=== PATIENT | male | born 1985 | race Caucasian/White ===

== ENCOUNTER 2024-07-19 15:25 | Emergency (ER) | payer OTHER, SELFPAY ==
[2024-07-19 15:28] VITALS: BP 144/90; PULSE 106; RESP 18; TEMP 38.5; O2SAT 94; BMI 34.3
--- NOTE | 2024-07-19 15:43 | ED_ITS ---
HPI - General Adult General Chief complaint: Fever Stated complaint: fever, chills Time Seen by Provider: 07/19/24 15:40 History of Present Illness HPI narrative: Patient presents to the emergency department complaining of flu like symptoms. Patient states this started Monday after he used a marijuana vape and he attributed those symptoms to that. Patient however has had symptoms persist and developed a fever, diarrhea , and continued vomiting. 38-year-old man presenting to the emergency department with concern of fever and diarrhea. He has also been vomiting. No melena no hematochezia no hematemesis. All these symptoms began about 5 days ago following marijuana vape. He has recently quit smoking and is coughing up the crud he says. Is not specifically short of breath. Is having some abdominal cramping ahead of the diarrhea. Worried now is dehydrated. Arrives here with a fever. No rashes. No particular exposures. Some general achiness and chilled. Related Data Previous Rx's ?Medication ?Instructions ?Recorded doxycycline hyclate 100 mg capsule 100 mg PO BID #14 caps 07/20/24 Allergies Allergy/AdvReac Type Severity Reaction Status Date / Time No Known Drug Allergies Allergy Verified 07/20/24 06:59 Review of Systems Status of ROS: Reports: 6 or more systems reviewed and unremarkable except as noted in History and below [facility] Social History (Updated 07/20/24 @ 07:28 by Sophia Fontanez MD) Smoking Status: Former smoker What tobacco products do you use: cigarettes Smoking quit date/years: <= 15 years ago Non-prescribed substance use: marijuana (any form) Exam Narrative: Exam Narrative: Pleasant. Curled up lying on his left side is if does not feel very good. Oropharynx is sticky. He is missing a few teeth. Generally hyperemic. He is breathing easily. Lungs appear to be clear. Heart is in an elevated rate and regular rhythm. Abdomen is soft. Overweight. He is little uncomfortable to palpation in the epigastrium. No masses appreciated. Extremities are well perfused without edema. She her skin is rather warm without rash. Cranial nerves 2-12 intact. He is conversing easily. Const: Vital Signs, click to edit/add: Vital Signs - 24 hr 07/19/24 15:28 Temperature 101.3 F H Pulse Rate [Right Pulse Oximeter] 106 H Respiratory Rate 18 Blood Pressure [Ri ght Upper Arm] 144/90 H Pulse Oximetry 94 Oxygen Delivery Me thod Room Air Documenting provider has reviewed patient's vital signs: yes Course Vital Signs Vital signs: Initial Vital Signs Temperature 101.3 F H 07/19/24 15:28 Temperature Source Temporal Artery Scan 07/19/24 15:28 Pulse Rate 106 H 07/19/24 15:28 Pulse Rhythm Regular 07/19/24 15:28 Pulse Strength 3+ Normal 07/19/24 15:28 Respiratory Rate 18 07/19/24 15:28 Blood Pressure 144/90 H 07/19/24 15:28 Blood Pressure Mean 108 H 07/19/24 15:28 Blood Pressure Position Sitting 07/19/24 15:28 Pulse Oximetry 94 07/19/24 15:28 Oxygen Delivery Method Room Air 07/19/24 15:28 Vital Signs Temperature 101.3 F H 07/19/24 15:28 Pulse Rate 106 H 07/19/24 15:28 Respiratory Rate 18 07/19/24 15:28 Blood Pressure 144/90 H 07/19/24 15:28 Pulse Oximetry 94 07/19/24 15:28 Oxygen Delivery Method Room Air 07/19/24 15:28 Temperature 97.9 F 07/19/24 18:20 Pulse Rate 93 07/19/24 17:07 Respiratory Rate 16 07/19/24 17:07 Blood Pressure 143/83 H 07/19/24 17:07 Pulse Oximetry 91 07/19/24 17:07 Oxygen Delivery Method Room Air 07/19/24 17:07 Medications Administered Medications: Discontinued Medications Generic Name Dose Route Start Last Admin Trade Name Salty PRN Reason Stop Dose Admin Acetaminophen 1,000 mg 07/19/24 17:10 07/19/24 17:20 Acetaminophen 500 Mg Tablet PO 07/19/24 17:11 1,000 mg ONCE ONE Administration Sodium Chloride 1,000 mls @ 1,000 mls/hr 07/19/24 15:52 07/19/24 17:09 0.9 % Sodium Chloride 1000 Ml IV 07/19/24 16:51 Infused .Q1H ONE Infusion Sodium Chloride 1,000 mls @ 1,000 mls/hr 07/19/24 16:35 07/19/24 18:20 0.9 % Sodium Chloride 1000 Ml IV 07/19/24 17:34 Infused .Q1H ONE Infusion Ibuprofen 800 mg 07/19/24 16:09 07/19/24 16:39 Ibuprofen 400 Mg Tablet PO 07/19/24 16:10 800 mg ONCE ONE Administration Ondansetron HCl 4 mg 07/19/24 15:52 07/19/24 16:23 Ondansetron 2 Mg/Ml Inj IVP 07/19/24 15:53 4 mg ONCE ONE Administration Medical Decision Making MDM Narrative Medical decision making narrative: Appears to have gastrointestinal illness of unclear etiology. Would screen for COVID considering community prevalence. Think would also benefit from hydration. Would check basic labs looking for red flags. Does not have significant pain or persistent discomfort that would prompt further imaging at this time. I did note lower oxygen saturations on arrival. Does have sleep apnea and long history of smoking. Not short of breath at this time. Labs are overall reassuring. Mildly elevated white count. With antiemetic and ibuprofen and IV hydration is overall improved. Heart rate still elevated but no longer tachycardic. See patient discharge plan for further discussion. Lab Data Lab results reviewed: Yes I reviewed the patient's lab results Labs: Lab Results 07/19/24 07/19/24 07/19/24 Range/Units 15:38 16:05 18:16 WBC 13.07 H (4.50-11.00) K/uL RBC 4.91 (4.30-5.90) m/uL Hgb 14.7 (13.5-17.5) gm/dL Hct 42.2 (37.0-53.0) % MCV 86 (80-100) fL MCH 30 (26-34) pg MCHC 35 (32-36) gm/dL RDW Coeff of Flower 13.2 (11.5-15.5) % Plt Count 204 (140-440) K/uL Neut % (Auto) 87.9 H (42.0-72.0) % Lymph % (Auto) 5.7 L (20-44) % Jack % (Auto) 5.9 (0.0-11.0) % Eos % (Auto) 0.0 (0.0-7.0) % Baso % (Auto) 0.3 (0.0-3.0) % Neut # (Auto) 11.50 H (1.7-7.0) K/uL Lymph # (Auto) 0.70 L (0.90-2.90) K/uL [place] # (Auto) 0.80 (0.00-0.90) K/UL Eos # (Auto) 0.00 (0.00-0.50) K/uL Baso # (Auto) 0.00 (0.00-0.30) K/uL Abs Immat Gran (auto) 0.00 (0.00-0.30) K/uL Imm/Tot Granulo (auto) 0.2 % Sodium 133 L (135-149) mmol/L Potassium 3.3 L (3.6-5.1) mmol/L Chloride 97 (96-114) mmol/L Carbon Dioxide 26 (20-32) mmol/L Anion Gap 10 (7-15) mEq/L BUN 14 (5-24) mg/dL Creatinine 0.7 (0.5-1.5) mg/dL Estimated Creat Clear 158.53 Estimated GFR 119 ml/min Glucose 155 H (60-115) mg/dL Calcium 8.7 (8.4-10.6) mg/dL Magnesium 2.5 (1.5-2.6) mg/dL SARS-CoV-2 (PCR) Negative SARS-CoV-2 (Negative) Lab Acknowledgement Test Added Discharge Plan Discharge Clinical Impression: Vomiting, Diarrhea, Fever, Dehydration Patient Disposition: Home w/ Parent or Adult Condition: Improved Additional Instructions: Continue to focus on hydration. Slow advance of diet over the next 24-36 hours. Diluted juices, soup broth, rice, crackers, toast. Return for inability to control fever, intractable vomiting along with the diarrhea, marked increase in persistent abdominal pain. We do see a lot of people in the emergency department with vomiting in particular and stomach cramping related to cannabis/THC use. Zofran from [facility] As long as no blood in stool or not experiencing a fever, could try loperamide for diarrhea. Prescriptions: No Action doxycycline hyclate 100 mg capsule 100 mg PO BID Qty: 14 0RF Follow Up/Referrals: Provider,Not a Local [Primary Care Provider] - Stand Alone Forms: [facility] Info Instructions
[2024-07-19 15:52] VITALS: TEMP 38.3
[2024-07-19 16:16] LABS: SARS PCR* Negative SARS-CoV-2 (Negative)
[2024-07-19] MEDS: 0.9 % SODIUM CHLORIDE 1000 ml 1,000 ML IV ×2 (16:22→17:09)
[2024-07-19] MEDS: ONDANSETRON 2 MG/ML inj 4 MG IVP (16:23)
[2024-07-19 16:26] LABS: Chloride* 97 mmol/L (96-114); Potassium* 3.3 mmol/L (3.6-5.1); Sodium* 133 mmol/L (135-149)
[2024-07-19 16:29] LABS: Anion Gap 10 mEq/L (7-15); Blood Urea Nitrogen* 14 mg/dL (5-24); Carbon Dioxide* 26 mmol/L (20-32); Creatinine* 0.7 mg/dL (0.5-1.5); Est. Creatinine Clearance* 158.53; Estimated Glomerular Filt Rate 119 ml/min; Glucose* 155 mg/dL (60-115)
[2024-07-19 16:30] LABS: Calcium* 8.7 mg/dL (8.4-10.6); Magnesium* 2.5 mg/dL (1.5-2.6)
[2024-07-19] MEDS: IBUPROFEN 400 MG TABLET 800 MG PO (16:39)
[2024-07-19 17:07] VITALS: BP 143/83; PULSE 93; RESP 16; TEMP 38.2; O2SAT 91
[2024-07-19] MEDS: ACETAMINOPHEN 500 MG TABLET 1000 MG PO (17:20)
[2024-07-19 18:20] VITALS: TEMP 36.6
[2024-07-19 18:22] LABS: Basophils Percent Auto 0.3 % (0.0-3.0); Hematocrit 42.2 % (37.0-53.0); Hemoglobin* 14.7 gm/dL (13.5-17.5); Immature Granulocytes Pct Auto 0.2 %; Lymphocytes Percent Auto 5.7 % (20-44); Mean Corpuscular HGB Conc 35 gm/dL (32-36); Mean Corpuscular Hemoglobin 30 pg (26-34); Mean Corpuscular Volume 86 fL (80-100); Monocytes Percent Auto 5.9 % (0.0-11.0); Neutrophils Percent Auto 87.9 % (42.0-72.0); Platelet Count* 204 K/uL (140-440); RDW Coefficient of Variation % 13.2 % (11.5-15.5); Red Blood Count 4.91 m/uL (4.30-5.90); White Blood Count* 13.07 K/uL (4.50-11.00)
[2024-07-19 18:25] LABS: Slide Review Reflex No
== END 2024-07-19 18:51 | disposition home or self-care (01) ==
PROVIDERS: Emergency Provider Family Medicine
DX: E86.0 Dehydration (principal); R11.10 Vomiting, unspecified; R19.7 Diarrhea, unspecified; R50.9 Fever, unspecified
CPT/HCPCS: 36415; 80048; 83735; 85025; 87635; 96361; 96374; 99284; A9270; J2405; J7030

== ENCOUNTER 2024-07-20 05:11 | Emergency (ER) | payer OTHER, SELFPAY ==
[2024-07-20 05:14] VITALS: BP 151/75; PULSE 96; RESP 16; TEMP 36.8; O2SAT 95; BMI 34.3
--- NOTE | 2024-07-20 05:37 | CRLHL7_ITS ---
For Patients: As a result of the Cures Act, medical imaging exams and procedure reports are released immediately into your electronic medical record. You may view this report before your referring provider. If you have questions, please contact your health care provider. INDICATION: Fever, dyspnea COMPARISON: None. TECHNIQUE: PA and lateral 2 view chest. FINDINGS: Lung volumes are good. Focal consolidation in the apical segment of the left lower lobe. No cavitation. No pulmonary edema. No pleural effusion. No pneumothorax. No pneumomediastinum. Normal cardiomediastinal silhouette. Bones: Normal for age. IMPRESSION: Pneumonia in the apical segment of the left lower lobe. No cavitation. No parapneumonic effusion. Dictated by Lindsay Harrison MD @ 07/20/2024 6:02:15 AM (Electronically Signed)
--- NOTE | 2024-07-20 05:39 | ED.GENADULT ---
HPI - General Adult General Chief complaint: Shortness of Breath/Dyspnea Stated complaint: breathing problems Time Seen by Provider: 07/20/24 05:25 Source: patient Mode of arrival: ambulatory Limitations: no limitations History of Present Illness HPI narrative: 38-year-old male with no chronic medical problems presents the emergency department for evaluation of fever, intermittent vomiting, left posterior chest wall pain. Symptoms have been present for the past 5-6 days, initially starting as general malaise and low-grade fever. Patient does use of marijuana vape frequently but reports he has stopped it 4 days ago because he thinks it may be the source of his symptoms. Patient was evaluated in the emergency department yesterday. Some tests are available for viewing but unfortunately the documentation is not completed. A review of what I can see shows a negative COVID test, very mild leukocytosis with labs that were otherwise reassuring. Patient reports that he felt quite a bit better after a L of normal saline and Tylenol. Patient states that he has had vomiting most nights and does have a little bit of mild epigastric discomfort but that started after the vomiting. 4 days ago he had pain in the left posterior mid back area, no trauma or injury. [place] a little short of breath at that time but then improved. Reports that he awoke at 2:00 a.m. this morning with return of the left posterior chest wall pain and S mild feeling of shortness of breath. No productive cough. Patient states that he has had similar symptoms once before was told it was related to his vape device but he can not remember any of the details specifically related to this. No bloody stools, did have some loose stools/diarrhea earlier in the illness, not this morning. Not regularly using any medication to help supplement his symptoms. Reports he was told that if he was not better to come back. It is unclear if he was literally told to come back a half day later. Denies dysuria, trauma, neurological changes, headache. He denies prior history of cardiac symptoms or chronic lung disease. He is a smoker for over 20 years. Past medical history benign per his report, no major long-term health problems. No medications or allergies. ROS is notable for the generalized malaise, fever, vomiting as stated above, otherwise denies times 12 systems. Related Data Previous Rx's ?Medication ?Instructions ?Recorded doxycycline hyclate 100 mg capsule 100 mg PO BID #14 caps 07/20/24 Allergies Allergy/AdvReac Type Severity Reaction Status Date / Time No Known Drug Allergies Allergy Verified 07/20/24 06:59 PFSH [facility] Social History Smoking Status: Former smoker What tobacco products do you use: cigarettes Smoking quit date/years: <= 15 years ago Non-prescribed substance use: marijuana (any form) Exam Const: Vital Signs, click to edit/add: Vital Signs - 24 hr 07/20/24 05:14 07/20/24 06:35 07/20/24 06:36 Temperature 98.2 F Pulse Rate 88 Pulse Rate [Right Pulse Oximeter] 96 88 Respiratory Rate 16 Blood Pressure 141/78 H Blood Pressure [Ri ght Upper Arm] 151/75 H 141/78 H Pulse Oximetry 95 95 94 Oxygen Delivery Me thod Room Air Room Air 07/20/24 06:36 07/20/24 07:02 07/20/24 07:04 Temperature Pulse Rate 85 89 90 Pulse Rate [Right Pulse Oximeter] Respiratory Rate Blood Pressure 156/93 H Blood Pressure [Ri ght Upper Arm] Pulse Oximetry 94 94 94 Oxygen Delivery Me thod Documenting provider has reviewed patient's vital signs: yes Common normals: no apparent distress and alert General appearance: comfortable Other: Moderate historian. No distress. HENMT: Common normals: normocephalic Head and scalp: normocephalic Face and sinus: normal facial exam Mouth: oral and palatal mucosa normal Throat: posterior oropharynx normal Eye: Common normals: conjunctivae normal General eye: normal appearance of both eyes Conjunctiva: conjunctiva(e) normal Neck & C-Spine: Common normals: full ROM, no lymphadenopathy and no meningeal signs Chest: Common normals: inspection of chest normal and palpation of chest normal Resp: Common normals: normal respiratory effort and no use of accessory muscles Effort & inspection: able to speak in complete sentences Other: Slight coarse expiratory rhonchi in the left posterior mid lung field. No prolongation of expiration. Remainder of the lung noyola sound clear. Cardio: Common normals: regular rate, regular rhythm, S1 normal heart sound, S2 normal heart sound and no murmurs Rate: regular rate Rhythm: regular rhythm Heart sounds: S1 normal and S2 normal GI: Common normals: Normal to inspection, nondistended, normoactive bowel sounds present, soft to palpation, non-tender, no hepatosplenomegaly and no masses Palpation: soft and no hepatosplenomegaly Back & Pelvis: Common normals: thoracic and lumbar spine normal to inspection Extremity: Common normals: normal to inspection, full ROM and normal capillary refill Neuro: Common normals: moves all extremities Sensorium/orientation: alert Meningeal signs: no meningeal signs Motor exam: no movement abnormalities noted Psych: Appearance: grossly normal Attitude: engaged Insight: fair Judgement: fair Skin: Common normals: no rashes or lesions noted General skin exam: no rashes or lesions noted Course Course ED Course: 38-year-old male with 5 days of low-grade fever. Had true fever yesterday and tachycardia yesterday. Unfortunately, the prior note is not completed to help guide me in the medical decision making. Patient does have exam findings that are concerning for pneumonia. Would recommend chest x-ray. His midback pain could also be explained by pancreatitis and he has had persistent vomiting, I would recommend investigating this further. Will also check liver enzymes, CRP, lactate. This would be an unusual presentation for a kidney stone but is certainly in the differential as well. Cannot exclude what the most likely diagnosis is is some sort of viral illness, gastroenteritis, respiratory illness, etc.. Hopefully labs will be revealing. Will give Toradol, Zofran, 1 L of normal saline while we await lab findings to help guide our management. Reevaluation(s) Time of Reevaluation #1: 07:26 Reevaluation #1: Counseled patient on findings, pneumonia but no evidence of pulmonary embolism. He is feeling somewhat better after fluids and Toradol. I have started him on doxycycline for the pneumonia. There are no signs of obvious sepsis. CRP is elevated any is low bit of leukocytosis, not unexpected. I do think the pneumonia does clearly explain his symptoms. Counseled that he will need to roller picker the doxycycline from the pharmacy and continue this twice daily for a week. Fever should be resolved Monday, primary care follow-up if not improving in 2 weeks. Discussed Tylenol and ibuprofen as needed for fever, general malaise. Push fluids. Okay to return to work on Monday. Alarm symptoms discussed and written for him as indications to come back to the ED. He verbalizes understanding and agreement. Vital Signs Vital signs: Initial Vital Signs Temperature 98.2 F 07/20/24 05:14 Temperature Source Temporal Artery Scan 07/20/24 05:14 Pulse Rate 96 07/20/24 05:14 Pulse Rhythm Regular 07/20/24 05:14 Respiratory Rate 16 07/20/24 05:14 Blood Pressure 151/75 H 07/20/24 05:14 Blood Pressure Mean 100 07/20/24 05:14 Blood Pressure Position Sitting 07/20/24 05:14 Pulse Oximetry 95 07/20/24 05:14 Oxygen Delivery Method Room Air 07/20/24 05:14 Vital Signs Temperature 98.2 F 07/20/24 05:14 Pulse Rate 96 07/20/24 05:14 Respiratory Rate 16 07/20/24 05:14 Blood Pressure 151/75 H 07/20/24 05:14 Pulse Oximetry 95 07/20/24 05:14 Oxygen Delivery Method Room Air 07/20/24 05:14 Temperature 98.2 F 07/20/24 05:14 Pulse Rate 90 07/20/24 07:04 Respiratory Rate 16 07/20/24 05:14 Blood Pressure 156/93 H 07/20/24 07:04 Pulse Oximetry 94 07/20/24 07:04 Oxygen Delivery Method Room Air 07/20/24 06:36 Medications Administered Medications: Discontinued Medications Generic Name Dose Route Start Last Admin Trade Name Freq PRN Reason Stop Dose Admin Doxycycline Hyclate 100 mg 07/20/24 06:11 07/20/24 06:22 Doxycycline Hyclate 100 Mg PO 07/20/24 06:12 100 mg ONCE ONE Administration Sodium Chloride 1,000 mls @ 1,000 mls/hr 07/20/24 05:38 07/20/24 07:14 0.9 % Sodium Chloride 1000 Ml IV 07/20/24 06:37 Infused .Q1H MAHENDRA Infusion Ketorolac Tromethamine 15 mg 07/20/24 05:37 07/20/24 06:00 Ketorolac 15 Mg/Ml Inj IVP 07/20/24 05:38 15 mg ONCE ONE Administration Ondansetron HCl 4 mg 07/20/24 05:37 07/20/24 06:00 Ondansetron 2 Mg/Ml Inj IVP 07/20/24 05:38 4 mg ONCE ONE Administration Medical Decision Making Lab Data Lab results reviewed: Yes I reviewed the patient's lab results Lab results narrative: Mild leukocytosis, no signs of sepsis. Normal lactate. Left shift. Strep unexpectedly positive. D-dimer elevated. Labs are consistent with dehydration. There is also a little bit of blood in the urine with ketones. This is an unusual presentation of a pneumonia and since he has such focal symptoms I would recommend that we proceed with a CT PA. Rationale discussed. Will start doxycycline for the pneumonia which will also cover the strep. Labs: Lab Results 07/20/24 07/20/24 07/20/24 Range/Units 05:37 05:55 06:20 WBC 13.56 H (4.50-11.00) K/uL RBC 4.73 (4.30-5.90) m/uL Hgb 13.8 (13.5-17.5) gm/dL Hct 40.7 (37.0-53.0) % MCV 86 (80-100) fL MCH 29 (26-34) pg MCHC 34 (32-36) gm/dL RDW Coeff of Flower 13.2 (11.5-15.5) % Plt Count 189 (140-440) K/uL Neut % (Auto) 83.2 H (42.0-72.0) % Lymph % (Auto) 7.5 L (20-44) % [place] % (Auto) 7.5 (0.0-11.0) % Eos % (Auto) 0.0 (0.0-7.0) % Baso % (Auto) 0.1 (0.0-3.0) % Neut # (Auto) 11.30 H (1.7-7.0) K/uL Lymph # (Auto) 1.00 (0.90-2.90) K/uL [place] # (Auto) 1.00 H (0.00-0.90) K/UL Eos # (Auto) 0.00 (0.00-0.50) K/uL Baso # (Auto) 0.00 (0.00-0.30) K/uL Abs Immat Gran (auto) 0.20 (0.00-0.30) K/uL Imm/Tot Granulo (auto) 1.7 % D-Dimer Quant (PE/DVT) 4.45 H (0.00-0.50) ug/ml Sodium 132 L (135-149) mmol/L Potassium 3.2 L (3.6-5.1) mmol/L Chloride 100 (96-114) mmol/L Carbon Dioxide 25 (20-32) mmol/L Anion Gap 7 (7-15) mEq/L BUN 15 (5-24) mg/dL Creatinine 0.7 (0.5-1.5) mg/dL Estimated Creat Clear 158.53 Estimated GFR 119 ml/min Glucose 145 H (60-115) mg/dL Lactate 1.1 (0.5-1.9) mmol/L Calcium 8.4 (8.4-10.6) mg/dL Total Bilirubin 0.6 (0.1-1.5) mg/dL AST 57 H (12-35) U/L ALT 67 H (4-50) U/L Alkaline Phosphatase 131 (40-150) U/L C-Reactive Protein 30.9 H (0.5-1.0) mg/dL Total Protein 7.1 (6.0-8.3) g/dL Albumin 3.8 (3.3-5.0) g/dL Lipase 72 (23-300) U/L Urine Color Dark yellow (Yellow) Urine Appearance Cloudy A (Clear) Urine pH 6.5 (5.0-8.5) Ur Specific [place] 1.025 (1.000-1.030) Urine Protein 2+ A (Negative) Urine Glucose (UA) Negative (Negative) Urine Ketones 1+ A (Negative) Urine Blood 2+ A (Negative) Urine Nitrite Negative (Negative) Urine Bilirubin 1+ A (Negative) Urine Urobilinogen 1.0 (0.2-1.0) Ur Leukocyte Esterase Trace A (Negative) Urine RBC 0-2 (0-2) Urine WBC 10-25 A (0-5) Ur Squamous Epith Cells Moderate A (None-Few) Urine Bacteria Few A (None) SARS-CoV-2 (PCR) Negative SARS-CoV-2 (Negative) Influenza Type A (PCR) Negative PCR FLU A (Negative) Influenza Type B (PCR) Negative PCR FLU B (Negative) RSV (PCR) Negative PCR RSV (Negative) Group A Strep DNA DETECTED A (Not Detectd) Imaging Data Chest x-ray: Attestation: I have reviewed the pertinent imaging results. My impression: Left retrocardiac and upper portion of the left lower lobe pneumonia. No effusions, cardiomegaly. Radiologist's impression: IMPRESSION: Pneumonia in the apical segment of the left lower lobe. No cavitation. No parapneumonic effusion. CT scan - chest: Attestation: I have reviewed the pertinent imaging results. My impression: Dense pneumonia in same area seen on x-ray but no obvious PE Radiologist's impression: IMPRESSION: 1. Left lung airspace disease, worrisome for pneumonia. Radiographic follow-up in 6-8 weeks recommended to document resolution. 2. Within the limitations of suboptimal pulmonary artery opacification, there is no evidence of pulmonary embolus. Discharge Plan Discharge Clinical Impression: Left lower lobe pneumonia Patient Disposition: Home, Self-Care Condition: Stable Instructions: Community Acquired Pneumonia (DC) Additional Instructions: As we discussed, your x-ray does show a pneumonia in the same area that I can hear on exam. The CT scan was negative for a blood clot. This would certainly explain her fever and all of the symptoms that you have been having. I have started you on an antibiotic, doxycycline. He will take this twice daily for 7 days. The dose that your given in the ED this morning counts is your 1st morning dose, your next dose will be later this afternoon/early evening. Your fever will not go away for a few more days. He will still have body aches, nausea an you may even still have some vomiting. I would expect you to start feeling better around Monday. It is safe for you to return to work Monday. Your cough and shortness of breath will linger for likely 1 month. I do think this is connected to your use of a vaping device and would recommend that you keep with your plan to not continue use of those products. If you have severe shortness of breath to the point where you cannot ambulate from her bed to the bathroom, you should come back to emergency department. If you have severe illness you should come back as well. If her symptoms fail to improve in 2 weeks, but are not severe, you should be re-evaluated in the primary care clinic. It is common to have body aches and fever with this. You should use Tylenol 1000 mg every 6 hours and/or ibuprofen 600 mg every 6 hours for fever, body aches and general discomfort. Activity Level: No Restrictions Discharge Diet: Regular Prescriptions: New doxycycline hyclate 100 mg capsule 100 mg PO BID Qty: 14 0RF Follow Up/Referrals: Provider,Not a Local [Primary Care Provider] - Stand Alone Forms: [employer] Info Instructions
[2024-07-20] MEDS: 0.9 % SODIUM CHLORIDE 1000 ml 1,000 ML IV (06:00)
[2024-07-20] MEDS: ONDANSETRON 2 MG/ML inj 4 MG IVP (06:00)
[2024-07-20] MEDS: KETOROLAC 15 MG/ML inj IVP (06:00)
[2024-07-20 06:09] LABS: Lactate Sepsis w/Reflex* 1.1 mmol/L (0.5-1.9)
[2024-07-20 06:12] LABS: Basophils Percent Auto 0.1 % (0.0-3.0); Hematocrit 40.7 % (37.0-53.0); Hemoglobin* 13.8 gm/dL (13.5-17.5); Immature Granulocytes Pct Auto 1.7 %; Lymphocytes Percent Auto 7.5 % (20-44); Mean Corpuscular HGB Conc 34 gm/dL (32-36); Mean Corpuscular Hemoglobin 29 pg (26-34); Mean Corpuscular Volume 86 fL (80-100); Monocytes Percent Auto 7.5 % (0.0-11.0); Neutrophils Percent Auto 83.2 % (42.0-72.0); Platelet Count* 189 K/uL (140-440); RDW Coefficient of Variation % 13.2 % (11.5-15.5); Red Blood Count 4.73 m/uL (4.30-5.90); White Blood Count* 13.56 K/uL (4.50-11.00)
[2024-07-20 06:17] LABS: Slide Review Reflex No
[2024-07-20] MEDS: DOXYCYCLINE HYCLATE 100 MG PO (06:22)
[2024-07-20 06:23] LABS: Albumin* 3.8 g/dL (3.3-5.0); Chloride* 100 mmol/L (96-114); Potassium* 3.2 mmol/L (3.6-5.1); Sodium* 132 mmol/L (135-149)
[2024-07-20 06:25] LABS: Appearance Urine Cloudy (Clear); Bilirubin Urine 1+ (Negative); Blood Urine 2+ (Negative); Color Urine Dark yellow (Yellow); Glucose Urine Negative (Negative); Ketones Urine 1+ (Negative); Leukocyte Esterase Urine Trace (Negative); Nitrite Urine Negative (Negative); Protein Urine 2+ (Negative); Specific Gravity Urine 1.025 (1.000-1.030); pH Urine 6.5 (5.0-8.5)
[2024-07-20 06:25] LABS: Creatinine* 0.7 mg/dL (0.5-1.5); Est. Creatinine Clearance* 158.53; Estimated Glomerular Filt Rate 119 ml/min
[2024-07-20 06:26] LABS: Alanine Aminotransferase* 67 U/L (4-50); Alkaline Phosphatase* 131 U/L (40-150); Anion Gap 7 mEq/L (7-15); Aspartate Amino Transferase* 57 U/L (12-35); Bilirubin Total* 0.6 mg/dL (0.1-1.5); Blood Urea Nitrogen* 15 mg/dL (5-24); Calcium* 8.4 mg/dL (8.4-10.6); Carbon Dioxide* 25 mmol/L (20-32); Glucose* 145 mg/dL (60-115); Lipase* 72 U/L (23-300); Total Protein* 7.1 g/dL (6.0-8.3)
[2024-07-20 06:33] LABS: Bacteria Urine Few; RBC Urine 0-2 (0-2); Squamous Epithelial Cell Urine Moderate (None-Few)
[2024-07-20 06:35] VITALS: BP 141/78; PULSE 88; O2SAT 95
[2024-07-20 06:35] LABS: D Dimer Quantitative* 4.45 ug/ml (0.00-0.50)
[2024-07-20 06:36] VITALS: BP 141/78; PULSE 85; PULSE 88; O2SAT 94
[2024-07-20 06:36] LABS: Strep A DNA Probe* DETECTED (Not Detectd)
--- NOTE | 2024-07-20 06:38 | CRLHL7_ITS ---
For Patients: As a result of the Century Cures Act, medical imaging exams and procedure reports are released immediately into your electronic medical record. You may view this report before your referring provider. If you have questions, please contact your health care provider. INDICATION: Left chest pain. Dyspnea. TECHNIQUE: CT chest pulmonary angiogram acquired with 95 cc of Isovue 370 IV contrast. COMPARISON: Chest radiograph 07/20/2024. FINDINGS: Within the limitations of suboptimal pulmonary artery opacification, there is no evidence of pulmonary embolus. Distal segmental and subsegmental pulmonary emboli are not excluded based on this exam. Main pulmonary artery is normal in caliber. Thoracic aorta is normal in caliber. Heart size is within normal limits. No pleural or pericardial effusions. Multiple borderline and mildly enlarged mediastinal and left hilar nodes. Soft tissues of the thoracic wall are unremarkable. No pneumothorax. Central airways are patent. Dense irregular consolidation and ground-glass opacities in the left lower lobe and medial aspect of the left upper lobe. Visualized upper abdomen is unremarkable. No acute or suspicious osseous abnormality. IMPRESSION: 1. Left lung airspace disease, worrisome for pneumonia. Radiographic follow-up in 6-8 weeks recommended to document resolution. 2. Within the limitations of suboptimal pulmonary artery opacification, there is no evidence of pulmonary embolus. Dictated by Dejuan Rueda MD @ 07/20/2024 7:17:16 AM Please note that all CT scans at this facility use dose modulation, iterative reconstruction, and/or weight-based dosing when appropriate to reduce radiation dose to as low as reasonably achievable. Dictated by: Dejuan Rueda MD @ 07/20/2024 07:17:46 (Electronically Signed)
[2024-07-20 06:50] LABS: PCR FLU A Negative PCR FLU A (Negative); PCR FLU B Negative PCR FLU B (Negative); PCR RSV Negative PCR RSV (Negative); SARS PCR* Negative SARS-CoV-2 (Negative)
--- NOTE | 2024-07-20 06:52 | ED.NURSE ---
pt taken for CT
[2024-07-20 06:54] LABS: C Reactive Protein* 30.9 mg/dL (0.5-1.0)
[2024-07-20 07:02] VITALS: PULSE 89; O2SAT 94
[2024-07-20 07:04] VITALS: BP 156/93; PULSE 90; O2SAT 94
[2024-07-20] MEDS: ACETAMINOPHEN 500 MG TABLET 1000 MG PO (07:35)
== END 2024-07-20 07:42 | disposition home or self-care (01) ==
PROVIDERS: Emergency Provider Family Medicine
DX: J18.9 Pneumonia, unspecified organism (principal)
CPT/HCPCS: 36415; 71046; 71275; 80053; 81001; 83605; 83690; 85025; 85379; 86140; 87086; 87631; 87651; 96374; 96375; 99284; A9270; J1885; J2405; J7030; Q9967